=== PATIENT | female | born 1985 | race African-American/Black ===

== ENCOUNTER 2021-02-06 07:25 | Inpatient (IN) | payer OTHER ==
[2021-02-06] MEDS ORDERED: DEXTROSE 5%-LACTATED RINGERS 1,000 ML IV SCH (09:15)
[2021-02-06] MEDS ORDERED: BUTORPHANOL TARTRATE 2 MG/ML VIAL IVPUSH ONE (09:15)
[2021-02-06] MEDS ORDERED: PROMETHAZINE HCL 25 MG/1 ML VIAL IVPUSH ONE (09:15)
[2021-02-06] MEDS ORDERED: PROMETHAZINE HCL 25 MG/1 ML VIAL ONE (11:07)
[2021-02-06] MEDS ORDERED: BUTORPHANOL TARTRATE 2 MG/ML VIAL ONE (11:07)
[2021-02-06] MEDS ORDERED: OXYTOCIN 20 UNITS in 0.9% NS 20 UNIT/1,000 ML INFUS.BAG IV ONE (13:29)
[2021-02-06] MEDS ORDERED: WITCH HAZEL 50% (TUCKS) 40 PAD/JAR PAD TP PRN ×2 (13:58→14:46)
[2021-02-06] MEDS ORDERED: BENZOCAINE 28 GM HEMORRHOIDAL OINTMENT TP PRN ×2 (13:58→14:46)
[2021-02-06] MEDS ORDERED: BISACODYL 10 MG SUPP.RECT RC PRN ×2 (13:58→14:46)
[2021-02-06] MEDS ORDERED: ACETAMINOPHEN 325 MG TABLET (FP) PO PRN ×2 (13:58→14:46)
[2021-02-06] MEDS ORDERED: METHYLERGONOVINE MALEATE 0.2 MG/1 ML AMP IM PRN ×2 (13:58→14:46)
[2021-02-06] MEDS ORDERED: BENZOCAINE 20% 57 GM BOTTLE TP PRN ×2 (13:58→14:46)
[2021-02-06] MEDS ORDERED: IBUPROFEN 600 MG TABLET (FP) PO PRN ×2 (13:58→14:46)
[2021-02-06] MEDS ORDERED: OXYTOCIN 20 UNITS in 0.9% NS 20 UNIT/1,000 ML INFUS.BAG IV SCH (14:00)
[2021-02-06 14:24] VITALS: BMI 41.1
[2021-02-06] MEDS ORDERED: oxyCODONE HCL 5 MG TABLET PO PRN (14:46)
[2021-02-06] MEDS ORDERED: OXYTOCIN 20 UNITS in 0.9% NS 1,000 ML IV SCH (15:00)
[2021-02-06] MEDS: PRENATAL VITAMINS W/ FOLIC ACID TABLET (FP) PO SCH (15:54)
[2021-02-06 16:40] LABS: BLOOD UREA NITROGEN 7.8 mg/dL (7-18)
[2021-02-06 16:43] LABS: CREATININE 0.8 mg/dL (0.55-1.3)
[2021-02-06 17:08] LABS: SYPHILIS W/ RPR CONF NON-REACTIVE (NONREACTIVE)
[2021-02-06 17:35] LABS: HEMATOCRIT 38.9 % (32.4-45.2); HEMOGLOBIN 12.7 GM/dL (10.7-15.3); MCH 27.7 pg (25.7-33.7); MCHC 32.8 g/dl (32.0-36.0); MEAN CELL VOLUME 84.5 fl (80-96); MEAN PLT VOLUME 10.4 fl (7.5-11.1); PLATELET COUNT 177 10^3/uL (134-434); RDW 14.9 % (11.6-15.6); WHITE BLOOD COUNT 14.2 K/mm3 (4.0-10.0)
[2021-02-06 17:37] LABS: HIV INTERPRETATION NEGATIVE (NEGATIVE)
[2021-02-06 18:20] LABS: ANISOCYTOSIS 1+; MACROCYTOSIS 1+; PLATELET ESTIMATE NORMAL
[2021-02-07 07:46] LABS: BASO % 0.5 % (0-2.0); EOS % 0.5 % (0-4.5); HEMATOCRIT 33.3 % (32.4-45.2); HEMOGLOBIN 11.3 GM/dL (10.7-15.3); LYMPH % 15.5 % (8-40); MCH 28.4 pg (25.7-33.7); MCHC 34.1 g/dl (32.0-36.0); MEAN CELL VOLUME 83.5 fl (80-96); MEAN PLT VOLUME 9.7 fl (7.5-11.1); MONO % 9.2 % (3.8-10.2); NEUT % 74.3 % (42.8-82.8); PLATELET COUNT 172 10^3/uL (134-434); RBC 3.99 M/mm3 (3.60-5.2); RDW 14.8 % (11.6-15.6); WHITE BLOOD COUNT 11.4 K/mm3 (4.0-10.0)
[2021-02-07 09:45] LABS: INR 0.97 (0.83-1.09); PROTHROMBIN TIME (PATIENT) 11.4 SEC (9.7-13.0)
[2021-02-07 09:46] LABS: ACTIVATED PTT 25.1 SECONDS (25.2-36.5)
[2021-02-07] MEDS: PRENATAL VITAMINS W/ FOLIC ACID TABLET (FP) PO SCH (10:00)
[2021-02-07] MEDS ORDERED: SENNOSIDES/DOCUSATE COMBO (SENNA PLUS) TABLET (UD) PO PRN ×2 (22:00)
[2021-02-08] MEDS: PRENATAL VITAMINS W/ FOLIC ACID TABLET (FP) PO SCH (09:43)
[2021-02-08 10:22] VITALS: BP 120/79; PULSE 79; TEMP 97.7
== END 2021-02-08 12:50 | disposition home or self-care (01) | DRG 807 ==
LOC: JDEL 07:25 → JLDR 13:00 → J3W 16:00
PROVIDERS: ADMIT Obstetrics & Gynecology; ATTEND Obstetrics & Gynecology
PROC: 10E0XZZ Delivery of Products of Conception, External Approach (ICD-10-PCS; principal; 2021-02-06)
DX: O80 Encounter for full-term uncomplicated delivery (principal); Z3A.40 40 weeks gestation of pregnancy; Z37.0 Single live birth
CPT/HCPCS: 36415; 59409; 80048; 85025; 85610; 85730; 86780; 86850; 86900; 86901; 87389; C9803; U0003; U0005